=== PATIENT | female | born 1995 | race Caucasian/White ===

== ENCOUNTER 2019-04-21 09:00 | Emergency (ER) | payer BC ==
[2019-04-21] MEDS ORDERED: KETOROLAC 30 MG/ML VIAL IVP ONE (09:20)
--- NOTE | 2019-04-21 09:20 | Emergency Department Record ---
History of Present Illness - General Chief Complaint: Chest Pain Stated Complaint: CHEST AND BACK PAIN Time Seen by Provider: 04/21/19 09:05 Source: Patient Mode of Arrival: Ambulatory Limitations: No limitations - History of Present Illness Initial Comments: 23 yo male presents with chest and back pain this morning. The onset was while eating breakfast. The pain was in the lower chest to epigastrium and the lower back. The pain was sharp. It is now mostly gone. He did vomit with some relief at that time. No cough, shortness of breath or pain with deep inspiration. No recent illness. He is currently identifying as a female but is a biological male. He is not and has not ever taken hormones for his transition. No personal or family history of CAD, PE, connective tissue disease, SCD, syncope. His pain is not pleuritic. No calf pain or swelling. No history of DVT. He is not a smoker. -: Minutes(s) Onset: After eating Pain Location: Substernal, Epigastric Pain Radiation: Back Severity: Severe Quality: Sharp Consistency: Now resolved (nearly resolved) Improves With: Other (vomiting) Worsens With: Nothing Context: Other (onset while eating) Other Symptoms: Other Treatments Prior to Arrival: None - Related Data On Oral Contraceptives: No Allergies Allergy/AdvReac Type Severity Reaction Status Date / Time No Known Drug Allergies Allergy Verified 04/21/19 09:21 Review of Systems Constitutional: Denies: Chills, Fever, Malaise, Weakness Eyes: Denies: Eye discharge ENT: Denies: Congestion, Throat pain Respiratory: Denies: Cough, Dyspnea, Hemoptysis, Stridor, Wheezes Cardiovascular: Reports: Chest pain. Denies: Arrhythmia, Dyspnea on exertion, Edema, Palpitations, Syncope Endocrine: Denies: Fatigue Gastrointestinal: Denies: Abdominal pain, Diarrhea, Nausea, Vomiting Genitourinary: Denies: Abnormal menses Musculoskeletal: Reports: As per HPI, Back pain. Denies: Arthralgia, Joint swelling, Myalgia, Neck pain Skin: Denies: Bruising, Change in color, Rash Neurological: Denies: Confusion, Headache, Numbness, Tremors, Vertigo, Weakness Psychiatric: Denies: Anxiety Hematological/Lymphatic: Denies: Blood Clots, Easy bleeding, Easy bruising, Swollen glands Physical Exam - General General Appearance: Alert, Oriented x3, Cooperative, No acute distress Limitations: No limitations - Head Head exam: Atraumatic, Normal inspection - Eye Eye exam: Normal appearance, PERRL. negative: Conjunctival injection, Scleral icterus - ENT ENT exam: Normal exam, Mucous membranes moist Ear exam: Normal external inspection Nasal Exam: Normal inspection Mouth exam: Normal external inspection Teeth exam: Normal inspection Throat exam: Normal inspection. negative: Tonsillar erythema, Tonsillomegaly - Neck Neck exam: Normal inspection, Full ROM. negative: Lymphadenopathy, Tenderness - Respiratory Respiratory exam: Normal lung sounds bilaterally. negative: Accessory muscle use, Decreased breath sounds, Prolonged expiratory, Respiratory distress, Rhonchi, Stridor, Wheezes - Cardiovascular Cardiovascular Exam: Regular rate, Normal heart sounds. negative: Diastolic murmur, Systolic murmur Peripheral Pulses: 2+: Radial (R), Radial (L) - GI/Abdominal GI/Abdominal exam: Soft. negative: Tenderness - Rectal Rectal exam: Deferred - exam: Deferred - Extremities Extremities exam: Normal inspection, Normal capillary refill. negative: Calf tenderness, Pedal edema, Tenderness - Back Back exam: Denies: CVA tenderness (R), CVA tenderness (L) - Neurological Neurological exam: Alert, Normal gait, Oriented X3. negative: Abnormal gait, Altered, Motor sensory deficit - Psychiatric Psychiatric exam: Normal affect, Normal mood. negative: Agitated, Anxious - Skin Skin exam: Dry, Intact, Normal color, Warm Course - Reevaluation(s) Reevaluation #1: EKG #1: 09:07 Rate: 68 Rhythm: sinus [place]: normal Intervals: normal ST segments: normal Prior: none Normal EKG 04/21/19 09:28 04/21/19 10:13 The labs were reviewed No significant changes in the CBC, CMP, or Lipase The D-Dimer is normal A CXR was ordered 04/21/19 10:14 The pain resolved with the Toradol 04/21/19 10:42 TheCXR was reviewed No acute process We discussed the results of the tests and questions were answered. The patient is doing well and is comfortable with DC. We discussed at length reasons to immediately return to the ED as well as close follow up. Medical Decision Making - Lab Data Result diagrams: 04/21/19 09:10 04/21/19 09:10 Disposition Disposition: Discharge Clinical Impression: Chest pain Qualifiers: Chest pain type: unspecified Qualified Code(s): R07.9 - Chest pain, unspecified Disposition: Home, Self-Care Condition: (1) Good Instructions: Chest Pain (ED) Additional Instructions: Review this ER visit and the tests performed with your family doctor Call your doctor for the next available follow up appointment Return to the ER for a recheck immediately if worse, any new concerns or questions Referrals: MALENA WOODS M.D. [MEDICAL DOCTOR] - Forms: Patient Portal Access Time of Disposition: 10:43 Quality - Quality Measures Quality Measures: N/A - Blood Pressure Screening Does Patient Have Any of the Following: No Blood Pressure Classification: Pre-Hypertensive BP Reading Systolic Measurement: 123 Diastolic Measurement: 78 Screening for High Blood Pressure: < Pre-Hypertensive BP, F/U Documented > [[id number]] Pre-Hypertensive Follow-up Interventions: Referral to alternative/primary care provider.
[2019-04-21 09:33] LABS: ABSOLUTE NEUTROPHIL COUNT 6.49; BASO % 0.1 % (0-6); EOS % 1.2 % (0-6); GRAN % 75.5 % (47-80); HEMATOCRIT 48.4 % (35.0-47.0); HEMOGLOBIN 16.1 gm/dl (11.6-16.0); LYMPH % 16.6 % (16-45); MEAN CELL VOLUME 84.8 fl (81-97); MEAN CORPUSCULAR HGB CONC 33.3 g/dl (32-36); MEAN PLATELET VOLUME 10.4 fl (7.4-10.4); MONO % 6.6 % (0-9); PLATELET COUNT 367 K/uL (130-400); RED BLOOD COUNT 5.71 M/uL (3.80-5.40); RED CELL DISTRIBUTION WIDTH 13.5 % (11.5-14.5); WHITE BLOOD COUNT W/O DIFF 8.6 K/uL (4.2-12.2)
[2019-04-21 09:34] LABS: MEAN CORPUSCULAR HEMOGLOBIN 28.1 pg (27-33)
[2019-04-21 09:46] LABS: BLOOD UREA NITROGEN 11 mg/dL (6-20); EST GLOMERULAR FILTRATION RATE > 60 mL/min
[2019-04-21 09:47] LABS: LIPASE 26 U/L (13-60); TOTAL PROTEIN 8.1 g/dL (6.6-8.7)
[2019-04-21 09:49] LABS: GLUCOSE,RANDOM 117 mg/dL (74-109)
[2019-04-21 09:51] LABS: ALT/SGPT 40 U/L (<33); AST/SGOT 36 U/L (10.0-35.0)
[2019-04-21 09:52] LABS: ALB/GLOB RATIO 1.5 (1.1-1.8); ALBUMIN 4.9 g/dL (4.0-5.0); ALKALINE PHOSPHATASE 94 U/L (35-104)
--- NOTE | 2019-04-21 10:53 | RADIOLOGY REPORT ---
EXAMINATION: Two View Chest Radiographs EXAM DATE: 04/21/2019 10:44 AM TECHNIQUE: Frontal and lateral views INDICATION: chest pain COMPARISON: None ENCOUNTER: Not applicable FINDINGS: The heart, mediastinum, and pulmonary vasculature are normal. No lung consolidation or pleural effu sions are present. Metallic densities overlying the right clavicle on the frontal view project external to the patient a nteriorly on the lateral view. IMPRESSION: No acute cardiopulmonary process. Dictated by: Baltazar Marques MD on 04/21/2019 10:50 AM. .
== END 2019-04-21 10:48 | disposition home or self-care (01) ==
LOC: ER 09:00
DX: R07.2 Precordial pain (principal); M54.5 Low back pain; R06.02 Shortness of breath; R11.10 Vomiting, unspecified; F17.210 Nicotine dependence, cigarettes, uncomplicated
CPT/HCPCS: 71046; 80053; 83690; 85025; 85379; 93005; 93010; 96374; 99284; J1885